=== PATIENT | male | born 1985 | race Caucasian/White ===

== ENCOUNTER 2020-04-19 06:05 | Emergency (ER) | payer OTHER ==
[~2020-04-19] VITALS: Ht 177.8 cm; Wt 80.0 kg
[2020-04-19 06:20] VITALS: BP 115/63
[2020-04-19] MEDS ORDERED: triamcinolone acetonide 40mg/ml inj IM ONE (06:40)
[2020-04-19] MEDS ORDERED: diphenhydrAMINE 25mg capsule PO ONE (06:40)
== END 2020-04-19 07:01 | disposition home or self-care (01) ==
LOC: ER 06:07
DX: L23.7 Allergic contact dermatitis due to plants, except food (principal); Z72.89 Other problems related to lifestyle
CPT/HCPCS: 96372; 99283; J3301; Q0163